=== PATIENT | male | born 1970 | race African-American/Black ===

== ENCOUNTER 2023-04-08 02:56 | Emergency (ER) | payer OTHER ==
[2023-04-08] MEDS ORDERED: cefTRIAXone (ROCEPHIN) 500 MG VIAL ONE (05:26)
[2023-04-08] MEDS ORDERED: Lidocaine 1% MPF 2 ML VIAL ONE (05:27)
== END 2023-04-08 05:49 | disposition home or self-care (01) ==
LOC: ERS 02:56
DX: N45.1 Epididymitis (principal); Q55.0 Absence and aplasia of testis; I10 Essential (primary) hypertension; Z79.899 Other long term (current) drug therapy
CPT/HCPCS: 76870; 93976; 96372; J0696